=== PATIENT | male | born 1940 | race Caucasian/White ===

== ENCOUNTER 2019-10-06 07:06 | Day surgery (SDC) | payer OTHER, MEDICARE ==
[2019-10-04 17:30] VITALS: BMI 27.4
[2019-10-06] MEDS ORDERED: PROPOFOL 20 ML ONE ×4 (08:02)
[2019-10-06] MEDS ORDERED: LIDOCAINE HCL/PF 2% SDV 5ML VIAL ONE (08:02)
[2019-10-06 08:53] VITALS: TEMP 97.8
[2019-10-06 09:21] VITALS: BP 143/78; PULSE 68
== END 2019-10-06 09:15 | disposition home or self-care (01) ==
LOC: FASU-ENDO 07:06
PROVIDERS: ATTEND Internal Medicine Gastroenterology
PROC: 0DJD8ZZ Inspection of Lower Intestinal Tract, Via Natural or Artificial Opening Endoscopic (ICD-10-PCS; principal; 2019-10-06 08:16)
DX: Z12.11 Encounter for screening for malignant neoplasm of colon (principal); K57.30 Diverticulosis of large intestine without perforation or abscess without bleeding